=== PATIENT | female | born 2000 | race Caucasian/White ===

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

== ENCOUNTER 2018-03-20 13:56 | Emergency (ER) | payer BC, MEDICAID, SELFPAY ==
[2018-03-20 13:58] VITALS: BP 126/88; PULSE 92; RESP 18; TEMP 36.3; O2SAT 96; BMI 42.5
--- NOTE | 2018-03-20 15:56 | ED.VISSUMM ---
- ER Visit Summary Date of Service: 03/20/18 Chief Complaint: Pleuritic scapular pain and shortness of breath History of Present Illness: The patient is a 18 F who is 36 weeks 6 days gestation presents with dyspnea for the past several days with pleuritic right scapular pain. She was seen at [facility] Tuesday. Family there was miscommunication and she left AMA. She was seen by the OB nurse practitioner today and was sent in to evaluate for pulmonary embolus. She denies any leg pain, swelling discoloration. She denies proptosis. He has no prior history of PE or DVT. She denies any URI symptoms. She denies any GI symptoms. Physical Examination: Vital signs are unremarkable. Heart rate is 92. She is not PERC negative. Head is atraumatic normocephalic. Pupils are equal round reactive. Extraocular muscles are intact. TMs are pearly white with landmarks noted. Nares patent with no drainage. Posterior pharynx without erythema or exudate. Uvula is midline. There is no dysphonia or dysphasia. Trachea is midline. There is no stridor with auscultation of the neck. Heart is regular without murmur, gallop or rub. S1 and S2 are normal. Lungs are clear to auscultation with good movement of air bilaterally. Abdomen is soft nontender. Bowel sounds are present normal. Fundal height is about the xiphoid. There is no asymmetry, swelling, discoloration, leg vein distention, palpable cords or tenderness along the distribution of the deep venous system. Test Results: CTA of the chest reveals no evidence of pulmonary pathology, pulmonary embolus or dissection. Emergency Department Course and Treatment: CTA of the chest was obtained because of pleuritic pain and dyspnea to evaluate for pulmonary embolus. Treatment Plan: Follow-up with OB as scheduled Disposition: Discharged to home Impression: Pleuritic pain with dyspnea Third trimester This note was generated with [employer] dictation software. It may contain incorrect words, spelling, and punctuation that were not noted in review of the chart prior to signing ED Disposition - Plan for ED Patient: Disposition: Home or Assisted Living Chief Complaint: Back Instructions: ED Chest Pain Pleurisy, ED Dyspnea Shortness of Breath Referrals: [facility] Doctor,Out of [Primary Care Provider] -
[2018-03-20 16:07] VITALS: BP 119/84; PULSE 94; RESP 18; O2SAT 97
--- NOTE | 2018-03-20 16:08 | ED.RN ---
THIS NURSE REVIEWED D/C INSTRUCTIONS WITH PT. PT VERBALIZED UNDERSTANDING OF INSTRUCTIONS. IV D/C. IV CATHETER INTACT. PT TOLERATED WELL. PT DENIES FURTHER NEEDS OR QUESTIONS AT THIS TIME. PT AMBULATES FROM ROOM ON OWN WITHOUT ASSISTANCE FROM STAFF
== END 2018-03-20 16:08 | disposition home or self-care (01) ==
PROVIDERS: Emergency Provider Emergency Medicine
DX: O99.513 Diseases of the respiratory system complicating pregnancy, third trimester (principal); R09.1 Pleurisy; Z3A.36 36 weeks gestation of pregnancy
CPT/HCPCS: 71275; 99285; Q9967; A4216

== ENCOUNTER 2018-04-16 20:30 | Inpatient (IN) | payer BC, MEDICAID, SELFPAY ==
[2018-04-16 18:34] VITALS: BMI 43.4
[2018-04-16 18:44] LABS: Hematocrit 34.4 % (37-47); Hemoglobin 11.6 g/dl (12.0-15.0); Mean Corp Hgb Conc 33.7 g/gl (32-36); Mean Corpuscular Hgb 31.4 pg (27.0-32.0); Mean Platelet Vol. 12.6 fl (6.2-12.0); Platelet Count 283 K/mm3 (150-450); RBC Distribution Width CV 13.4 % (11.6-14.6); RBC Distribution Width SD 44.3 fl (35.1-43.9); Scan Indicated on CBC? Y/N NO; White Blood Count 11.7 K/mm3 (4.4-11.0)
[2018-04-16 18:47] LABS: International Normalized Ratio 0.9; Prothrombin Time (Protime)PT. 11.8 SECONDS (11.7-14.9)
[2018-04-16 18:48] LABS: Partial Thromboplast Time 27.6 Seconds (24.1-36.2)
[2018-04-16 18:57] LABS: Protein, Urine (Random) 10.7 mg/dL (<11.9); Protein:Creat Ratio 171 mg/g CRE (0-200)
[2018-04-16 19:03] LABS: AST(SGOT) 20 U/L (15-37); Alanine Aminotransfer ALT/SGPT 27 U/L (13-56); EST Glomerular Filtration Rate 135 mL/min (>60); Est Glom Filt Rate - Afr Amer 163 mL/min (>60); Estimated Creatinine Clearance 123.72 ml/min
--- NOTE | 2018-04-16 20:15 | PCM.HP.OB ---
History Date of Admission: 04/16/18 Final DEJUAN: 04/18/18 Final DEJUAN Source: US <20 weeks Gestational age: 39 Weeks and 5 Days History of this : This is a 18 year-old, G 1P0, at 39.5weeks gestational age presents for complaints of elevated BP at home and migraine headache x 24hrs. pt is prone to migraine headaches but was worried when BP was slightly elevated [id number]. pt denies other complaints today- denies RUQ pain, vaginal bleeding or leaking fluid. Allergies No Known Allergies Allergy (Verified 03/20/18 13:58) Home Medications: Home Medications Vits [Prenatabs FA] 1 tablet PO DAILY 04/16/18 Smoking Status: Former smoker Alcohol: None Number of Fetus(es): 1 Heart Tracin mod thu, +accels, no decels. Category 1 reactive TOCO Analysis: irregular History Past Pregnancies: Past Pregnancies Delivery Date Name GA/Weeks Outcome Route Weight Gender Labor Length Anesthesia Delivery Location Provider FOB Labs: A+, HIV neg, HEPB neg, Rub immune, RPR non reactive, GBS negative. CHLAMYDIA ++ since OCTOBER. Pt did recieve AZITHROMYCIN on APR 05 Expected Infant Delivery Method: Spontaneous Vaginal Review of Systems Constitutional: Denies: Anorexia Cardiovascular: Denies: Chest Pain Gastrointestinal: Denies: Abdominal Pain Neurological: Reports: Headaches - migraine x 24hrs - improved since arrival on unit per patient. Denies: Blurred vision, Double vision Physical Exam General: Alert, Oriented x3 Abdomen: Soft, Gravid Neurological: Cranial nerves II-XII grossly intact NETWORK SUPPORT TECHNICIAN: Normal external genitalia Estimated gestational size: Appropriate for gestational size Presentation: Cephalic Cervix Dilation (cm): 2.5 Station: -2 Effacement (%): 80 Assessment/Plan This is a 18 year-old, at 39.5 weeks gestational age - Gestational Hypertension - Admit for IOL 1) PRE E LABS reviewed- Normal - diagnosis of Gest HTN reviewed with patient- BPs on unit 120-140s/80-90s 2) Pitocin for IOL 3) toco/fhr monitor 4) epidural if requested 5) will allow patient to eat/shower then will start induction 6) Risks of IOL reviewed. 7) recent treatment of Chlamydia- nursing made aware.
--- NOTE | 2018-04-16 20:20 | HP.PCM_ITS ---
History Date of Admission: 04/16/18 Final DEJUAN: 04/18/18 Final DEJUAN Source: US <20 weeks Gestational age: 39 Weeks and 5 Days History of this : This is a 18 year-old, G 1P0, at 39.5weeks gestational age presents for complaints of elevated BP at home and migraine headache x 24hrs. pt is prone to migraine headaches but was worried when BP was slightly elevated [id number]. pt denies other complaints today- denies RUQ pain, vaginal bleeding or leaking fluid. Allergies No Known Allergies Allergy (Verified 03/20/18 13:58) Home Medications: Home Medications Vits [Prenatabs FA] 1 tablet PO DAILY 04/16/18 Smoking Status: Former smoker Alcohol: None Number of Fetus(es): 1 Heart Tracin mod thu, +accels, no decels. Category 1 reactive TOCO Analysis: irregular History Past Pregnancies: Past Pregnancies Delivery Date Name GA/Weeks Outcome Route Weight Gender Labor Length Anesthesia Delivery Location Provider FOB Labs: A+, HIV neg, HEPB neg, Rub immune, RPR non reactive, GBS negative. CHLAMYDIA ++ since OCTOBER. Pt did recieve AZITHROMYCIN on APR 05 Expected Infant Delivery Method: Spontaneous Vaginal Review of Systems Constitutional: Denies: Anorexia Cardiovascular: Denies: Chest Pain Gastrointestinal: Denies: Abdominal Pain Neurological: Reports: Headaches - migraine x 24hrs - improved since arrival on unit per patient. Denies: Blurred vision, Double vision Physical Exam General: Alert, Oriented x3 Abdomen: Soft, Gravid Neurological: Cranial nerves II-XII grossly intact ACCOUNTING TEACHER: Normal external genitalia Estimated gestational size: Appropriate for gestational size Presentation: Cephalic Cervix Dilation (cm): 2.5 Station: -2 Effacement (%): 80 Assessment/Plan This is a 18 year-old, at 39.5 weeks gestational age - Gestational Hypertension - Admit for IOL 1) PRE E LABS reviewed- Normal - diagnosis of Gest HTN reviewed with patient- BPs on unit 120-140s/80-90s 2) Pitocin for IOL 3) toco/fhr monitor 4) epidural if requested 5) will allow patient to eat/shower then will start induction 6) Risks of IOL reviewed. 7) recent treatment of Chlamydia- nursing made aware.
[2018-04-17] MEDS: Oxytocin 30 units/NS 500 ml 30 UNITS/500 ML IV.SOLN IV (00:11)
[2018-04-17] MEDS: 0.9% Saline Lock 10 ML Syringe IV (00:11)
[2018-04-17] MEDS: Lactated Ringers 1,000 ML 50 ML IV ×5 (00:11→23:03)
[2018-04-17] MEDS: Mag Hydrox/Al Hydrox/Simeth 30 ML UDC PO ×2 (01:31→05:26)
--- NOTE | 2018-04-17 02:30 | NURSING ---
During admission, patient stated that she was positive for chlamydia in first trimester and took medication, but was very sick and could not keep medication down, so they repeated the treatment, patient stated that she was tested again in middle of March and test came back positive and that did one time treatment and they will continue to treat after .
[2018-04-17] MEDS: Ondansetron 4 MG/2 ML Vial IV (07:43)
--- NOTE | 2018-04-17 09:14 | PCM.PN.OB ---
Subjective: Doing well per patient and nursing staff. Resting in bed comfortably with peanut ball. Mother at bedside. Objective: FHT: 135, moderate variability, accels, no decels, Category 1 TOCO: Irregular, Pitocin at 10 mu's Cervix 3cm/80%/-2, vertex, IBOW. - Physical Exam Extremities: No edema Neurological: Deep Tendon Reflexes 2+/4 and Symmetrical, - - Negative clonus Weight: 245 lb 2.464 oz Body Mass Index (BMI) 43.4 Intake and Output for Last 24 Hours 04/15/18 04/16/18 04/17/18 23:59 23:59 23:59 Intake Total 1445 / 1445 Output Total 650 / 650 Balance 795 / 795 Laboratory Tests Past 24 Hrs 04/16/18 04/16/18 04/16/18 18:00 18:05 18:05 WBC 11.7 H RBC 3.70 L Hgb 11.6 L Hct 34.4 L MCV 93.0 MCH 31.4 MCHC 33.7 RDW 13.4 RDW Differential 44.3 H Plt Count 283 MPV 12.6 H PT 11.8 INR 0.9 APTT 27.6 Creatinine Estim Creat Clear Calc Est GFR (MDRD) Af Amer Est GFR (MDRD) Non-Af Uric Acid AST ALT U Random Total Protein 10.7 Urine Creatinine 62.40 Protein/Creatinin Ratio 171 Blood Type Antibody Screen 04/16/18 04/16/18 18:05 18:05 WBC RBC Hgb Hct MCV MCH MCHC RDW RDW Differential Plt Count MPV PT INR APTT Creatinine 0.60 Estim Creat Clear Calc 123.72 Est GFR (MDRD) Af Amer 163 Est GFR (MDRD) Non-Af 135 Uric Acid 4.0 AST 20 ALT 27 U Random Total Protein Urine Creatinine Protein/Creatinin Ratio Blood Type A POSITIVE Antibody Screen NEGATIVE Medical Necessity - Tobacco Use Smoking Status: Former smoker Assessment/Plan A:Pitocin IOL for gestational HTN P: 1) Continue with Pitocin IOL 2) Epidural if requested. 3) BP stable. consulted for co-management of care, agrees with plan.
[2018-04-17] MEDS: Nalbuphine 10 MG/ML Ampul IV (16:23)
--- NOTE | 2018-04-17 18:21 | PCM.PN.OB ---
Subjective: Coping well with contractions, resting in bed. Mother at bedside. Objective: Cervix 5cm/80%/-1. AROM Clear fluid IUPC placed Contractions every 3 minutes Pitocin at 15 mu's FHT 120, moderate variability, accels, no decels, Category 1 - Physical Exam Weight: 245 lb 2.464 oz Body Mass Index (BMI) 43.4 Intake and Output for Last 24 Hours 04/15/18 04/16/18 04/17/18 23:59 23:59 23:59 Intake Total 1445 / 1445 Output Total 650 / 650 Balance 795 / 795 Laboratory Tests Past 24 Hrs 04/16/18 04/16/18 04/16/18 18:00 18:05 18:05 WBC 11.7 H RBC 3.70 L Hgb 11.6 L Hct 34.4 L MCV 93.0 MCH 31.4 MCHC 33.7 RDW 13.4 RDW Differential 44.3 H Plt Count 283 MPV 12.6 H PT 11.8 INR 0.9 APTT 27.6 Creatinine Estim Creat Clear Calc Est GFR (MDRD) Af Amer Est GFR (MDRD) Non-Af Uric Acid AST ALT U Random Total Protein 10.7 Urine Creatinine 62.40 Protein/Creatinin Ratio 171 Blood Type Antibody Screen 04/16/18 04/16/18 18:05 18:05 WBC RBC Hgb Hct MCV MCH MCHC RDW RDW Differential Plt Count MPV PT INR APTT Creatinine 0.60 Estim Creat Clear Calc 123.72 Est GFR (MDRD) Af Amer 163 Est GFR (MDRD) Non-Af 135 Uric Acid 4.0 AST 20 ALT 27 U Random Total Protein Urine Creatinine Protein/Creatinin Ratio Blood Type A POSITIVE Antibody Screen NEGATIVE Medical Necessity - Tobacco Use Smoking Status: Former smoker Assessment/Plan A: Pitocin IOL, progressing Category 1 FHT P: 1) Continue with pitocin IOL, progressing 2) IUPC placed 3) AROM 4) Epidural for pain management 5) updated on patient status.
[2018-04-17] MEDS: fentaNYL-bupivacaine (epidural) 100 ML BAG EPIDURAL (23:45)
[2018-04-18] MEDS: Oxytocin 30 units/NS 500 ml 30 UNITS/500 ML IV.SOLN 334 UNITS IV (01:34)
--- NOTE | 2018-04-18 01:59 | OP.PCM_ITS ---
- Problem List (1) Vaginal delivery Status: Acute (2) Shoulder dystocia, delivered Status: Acute Vaginal Delivery Maternal Presentation: Medically Indicated Induction Method of Induction: Pitocin Medical Reason for Induction: Gestational Hypertension Amniotic Membrane Rupture Type: Artificial Amniotic Fluid Description: Clear Final DEJUAN: 04/18/18 Gestational age: 40 Weeks and 0 Days Date of Procedure: 04/18/18 Pre-Operative Diagnosis: Induction of labor Post-Operative Diagnosis: Vaginal delivery Surgery/ Procedure Performed: Spontaneous Vaginal Delivery Type of Anesthesia: Epidural Description of Procedure: Progressed to complete with urge to push. Epidural analgesia for pain, effective at times. Vaginal delivery of male over 1st degree perineal laceration. Apgars 7, 9, weight pending. Infant head delivered CATHY and shoulders not forthcoming. Jean followed by suprapubic pressure, shoulders still not forthcoming. Baby turned OP then to CATHY then back to CATHY, attempted Farley Manuver. Attempted posterior arm removal, baby restituted to LAZARO and delivered. Shoulder dystocia for approximately 1minute and 10 seconds. Peds called to room for evaluation, no spontaneous cry, weak tone, poor color. Cord clamped and cut, handed to nursery staff and taken to warmer. Cry with stimulation and no respiratory assistance needed. Pitocin started for active 3rd stage management. Infant placed back on maternal chest. Cord blood gases. Placenta delivered with gentle traction/counter pressure and maternal effort, intact 3 vessel cord. P erineum inspected and revealed small 1st degree perineal laceration, repaired due to bleeding.Repair of laceration with 3.0 vicryl under epidural analgesia. Fundus firm, hemostasis achieved. Mom and baby stable, planning to breastfeed. Family bonding well. notified. Presentation: Vertex Placental Delivery Description: Spontaneous Placenta Disposition: [facility] Cord Vessel Description: 3 Vessels Cord Gases drawn per routine: ABG, VBG Cord Entanglement: None Estimated Blood Loss: 350ml Infant A gender: Male (1 minute): 7 (5 minute): 9 Episiotomy Description: None Laceration: Perineal Extension/lac, 1st degree Medications given after delivery: IV Pitocin
[2018-04-18] MEDS: Oxytocin 30 units/NS 500 ml 30 UNITS/500 ML IV.SOLN 167 UNITS IV (02:04)
[2018-04-18] MEDS: 0.9% Saline Lock 10 ML Syringe IV (04:21)
--- NOTE | 2018-04-18 06:34 | NURSING ---
0400-jennifer pad weighed and 188cc blood loss during recovery
[2018-04-18 07:45] VITALS: BP 132/86; PULSE 94; RESP 18; TEMP 36.6; O2SAT 100
[2018-04-18 12:00] VITALS: BP 118/78; PULSE 85; RESP 16; TEMP 36.4; O2SAT 97
[2018-04-18] MEDS: Ibuprofen 600 MG Tablet PO ×2 (14:56→22:11)
[2018-04-18 15:58] VITALS: BP 113/75; PULSE 82; RESP 16; TEMP 36.7; O2SAT 98
--- NOTE | 2018-04-18 16:39 | CASEMGMT ---
Social Work Labor and Delivery Unit Notified by silverer on 04-17-18, during the mother of baby's (MOB) labor of the need for social work consult after delivery. Chart has been reviewed and noted that MOB is a first time mother, father of baby not currently involved, and MOB with mental health history including active depression and some suicidal thoughts during this , now reportedly in outpatient treatment with a local mental health provider. Plan: As patient has just delivered today and it is reported by staff that MOB has not really slept much, this auto service writer will plan to see MOB on 04-19-18 for assessment. -RENY Young, T[employer]GR[employer] MANAGEMENT PROFESSOR
[2018-04-18 20:00] VITALS: BP 113/64; PULSE 94; RESP 16; TEMP 36.6
[2018-04-18 23:45] VITALS: BP 130/81; PULSE 90; RESP 18; TEMP 36.7
--- NOTE | 2018-04-19 00:19 | NURSING ---
using tucks and ice packs.
[2018-04-19 02:20] VITALS: BP 109/57; PULSE 68; RESP 16; TEMP 37
[2018-04-19] MEDS: Ibuprofen 600 MG Tablet PO ×2 (06:17→13:23)
[2018-04-19 07:30] VITALS: BP 118/79; PULSE 76; RESP 16; TEMP 36.4; O2SAT 97
--- NOTE | 2018-04-19 08:32 | DCINST_ITS ---
Discharge Diet: No Restrictions Discharge Activity: Return to Normal Activity, May not drive while taking narcotic pain medications., May Shower May resume sexual activity in: 4-6 weeks Additional Activity Instructions:: Nothing in the vagina for 4-6 weeks. You may return to work/school in 6 weeks. Call your doctor if your incision/area has: Continuous Slow Oozing, Sudden Increased Bleeding, Increased Pain/ Swelling, Increased Redness, Foul Smelling Discharge Call your doctor if you observe: Fever of 101 or Higher, Inability to urinate, Inability to have a bowel movement, Using more than one pad per hour Additional Instructions: If you experience any of the following, contact your healthcare provider. * Bleeding that soaks a pad every hour for 2 hours * Fever 100.4 or higher * Unrelieved incision or abdominal pain * Swelling, redness, discharge or bleeding from your incision or episiotomy site * Your incision begins to separate * Problems urinating (including inability to urinate or burning while urinating). * Visual changes * Severe headache * Flu-like symptoms * Pain or redness in one of both of your breasts * Pain, warmth, tenderness or swelling in your legs, especially the calf area * Frequent nausea and vomiting * Symptoms of depression or anxiety If you experience any of the following, call 911 or go to the nearest Emergency Room. * Chest pain * Problems breathing * Seizure activity * Partial or complete paralysis of a body part, slurred speech, weakness or drooping of the face, or a sudden inability to walk or hold your balance Allergies/Adverse Reactions: Allergies No Known Allergies Allergy (Verified 03/20/18 13:58) Medications to take at Discharge Vits [Prenatabs FA ] 1 tablet PO DAILY 04/16/18 Please Follow Up With: Belén Romero CNM When: Call to make an appointment with your doctor in 2 and 6 weeks. If you had elevated Blood Pressure or 4th degree laceration you will need to be seen in 2 weeks. Primary Care Physician: Lizett Dias,Out of [Primary Care Provider] - Test Results: Test results from this visit will be discussed in further detail at your follow- up appointment, if applicable. Proposed Discharge Date: 04/19/18
--- NOTE | 2018-04-19 08:38 | PCM.PN.OB ---
Patient Problems: Active and Suspected Problems (Last Updated 04/16/18 @ 20:17 by Kim Yo MD) Vaginal delivery (Acute) Shoulder dystocia, delivered (Acute) Subjective: Patient denies any issues or complaints at this time. Patient's mother is at bedside and providing support at this time. Social Service consult still pending at this time for patient hx of depression/anxiety - patient reports she has a good support system at home to help provide assistance in caring for baby. Denies LYLE, scotoma or dizziness. Denies issues with urination or ambulation. Has not had a bowel movement yet, but is passing flatus. Objective: Breasts without cracks or blisters, breasts soft but filling Abdomen NT x 4 quadrants in LE, FF midline 2FB below umbilicus +2/4 quadrants in LE, no edema, negative calf tenderness in LE scant rubra lochia - Physical Exam General: Alert, Oriented x3, Cooperative HEENT: Atraumatic, Normocephalic Neck: Supple Lungs: Normal air movement Cardiovascular: Regular rate, No murmurs Abdomen: Soft, Non Tender Extremities: No edema, Capillary Refill Less than 3 Seconds Skin: No rashes, No breakdown Musculoskeletal: No Tenderness to Palpation of Joints or Extremities Neurological: Cranial nerves II-XII grossly intact Psych/Mental Status: Normal Affect, Appropriate Vital Signs Temp Pulse Resp BP Pulse Ox 97.5 F L 76 16 118/79 97 04/19/18 07:30 04/19/18 07:30 04/19/18 07:30 04/19/18 07:30 04/19/18 07:30 Oxygen Delivery Method Room Air Weight: 245 lb 2.464 oz Body Mass Index (BMI) 43.4 Intake and Output for Last 24 Hours 04/17/18 04/18/18 04/19/18 23:59 23:59 23:59 Intake Total 4240 / 4240 1423 / 1423 Output Total 650 / 650 988 / 988 Balance 3590 / 3590 435 / 435 Medical Necessity - Tobacco Use Smoking Status: Former smoker Assessment/Plan All Active Problems (Last Updated 04/16/18 @ 20:17 by Kim Yo MD) Vaginal delivery (Acute) Shoulder dystocia, delivered (Acute) 18 y/o s/p , PPD #1, Uncomplicated PP course P: 1) Discharge patient to home pending discharge and SSC 2) Encourage to continue BF 3) RTC at 2 and 6 weeks PP to [place] [facility] Radha MIGUEL
[2018-04-19 13:30] VITALS: BP 114/78; PULSE 74; RESP 16; TEMP 36.4; O2SAT 98
--- NOTE | 2018-04-19 14:45 | NURSING ---
This doctor of nursing practice reviewed the charting completed by EP, student nurse.
== END 2018-04-19 13:50 | disposition home or self-care (01) | DRG 774 ==
LOC: WPOUT 20:32
PROVIDERS: Admitting Provider Obstetrics & Gynecology; Visit Provider Obstetrics & Gynecology
DX: O13.3 Gestational [pregnancy-induced] hypertension without significant proteinuria, third trimester (principal); O98.82 Other maternal infectious and parasitic diseases complicating childbirth; O99.354 Diseases of the nervous system complicating childbirth; O66.0 Obstructed labor due to shoulder dystocia; G43.909 Migraine, unspecified, not intractable, without status migrainosus; O70.0 First degree perineal laceration during delivery; Z87.891 Personal history of nicotine dependence; Z3A.40 40 weeks gestation of pregnancy; Z37.0 Single live birth
CPT/HCPCS: 59025; 59050; 82565; 82570; 84156; 84450; 84460; 84550; 85027; 85610; 85730; 86850; 86900; 99218; J7120; A4216; G0378; J2405